=== PATIENT | male | born 1980 | race Caucasian/White ===

== ENCOUNTER → 2016-10-13 | Outpatient (CLI) | payer OTHER ==
[~2016-10-13] MED LIST: GADAVIST IV PRN
--- NOTE | 2016-10-13 17:50 | DIAGNOSTIC IMAGING REPORT ---
MRI OF THE BRAIN WITHOUT AND WITH IV CONTRAST CLINICAL HISTORY: History of ganglioglioma resection. Evaluate for recurrence. COMPARISON STUDY: CT scan dated 02/20/2016 TECHNIQUE: MRI of the brain was performed from the vertex to the skull base utilizing various T1 and T2 weighted sequences. Following the IV administration of 7 mL of Gadavist contrast, additional enhanced images were obtained. FINDINGS: Sagittal T1, axial diffusion, proton density and T2 weighted axial, coronal FLAIR, and pre and post axial T1-weighted images were acquired. These were supplemented with post gadolinium coronal T1 weighted images. There are postsurgical changes of a right-sided craniotomy and right anterior temporal resection. Axial diffusion-weighted images reveal no evidence of acute or subacute infarction. There is no evidence of ventricular dilatation. Proton density T2-weighted and FLAIR images reveal mild increased T2 and FLAIR signal surrounding the temporal lobe resection site. There is also a focus of increased T2 signal adjacent to the anterior horn the right lateral ventricle. There are no abnormal flow voids. There is a left parietal lobe developmental venous anomaly. There are no enhancing lesions to indicate tumor recurrence. Mild right temporal dural enhancement is likely postsurgical. IMPRESSION: 1. Postsurgical changes of a right temporal craniotomy and right anterior temporal resection 2. Mild increased T2 and FLAIR signal surrounding the resection site is likely postsurgical. This involves the right hippocampal region. These areas should be correlated with prior postsurgical studies. Future study interpretation should play close attention to this area 3. Mild right temporal dural enhancement is likely postsurgical 4. Left parietal developmental venous anomaly. Electronically signed by: Jules Norton M.D. 10/13/2016 5:48 PM Dictated Date/Time: 10/13/2016 5:41 PM
== END | disposition home or self-care (01) ==
LOC: C.MRI 16:37
PROVIDERS: ATTEND Psychiatry & Neurology Neurology
DX: D49.6 Neoplasm of unspecified behavior of brain (principal); Q28.3 Other malformations of cerebral vessels